=== PATIENT | male | born 1980 | race Caucasian/White ===

== ENCOUNTER 2016-10-19 10:18 | Outpatient (CLI) | payer OTHER ==
[~2016-10-19 10:18] MED LIST: LIB10 PO
[2016-10-19 10:44] LABS: BASOPHILS # (AUTO) 0.2 K/uL (0.0-0.2); BASOPHILS % (AUTO) 1.7 % (0.0-2.0); EOSINOPHILS # (AUTO) 0.2 K/uL (0.0-0.4); EOSINOPHILS % (AUTO) 2.5 % (0.0-4.0); HEMOGLOBIN 15.9 g/dL (14.0-18.0); LYMPHOCYTES # (AUTO) 2.6 K/uL (1.0-5.5); LYMPHOCYTES % (AUTO) 29.3 % (20.5-51.5); MEAN CORPUSCULAR HEMOGLOBIN 32 pg (27-31); MEAN CORPUSCULAR HGB CONC 33 % (32-36); MEAN CORPUSCULAR VOLUME 98 fL (79.0-98.0); MONOCYTES # (AUTO) 0.7 K/uL (0.0-1.0); MONOCYTES % (AUTO) 7.3 % (1.7-9.3); NEUTROPHILS # (AUTO) 5.2 K/uL (1.8-7.7); NEUTROPHILS % (AUTO) 59.2 % (40.0-70.0); PLATELET COUNT (AUTO) 305 K/uL (130-430); RED BLOOD CELL COUNT(AUTO) 4.92 MIL/uL (4.2-6.2); RED CELL DISTRIBUTION WIDTH 13.4 % (9.0-15.0); WHITE BLOOD COUNT (AUTO) 8.9 K/uL (4.8-10.8)
[2016-10-19 10:47] LABS: CALCIUM 9.4 mg/dL (8.4-11.0); CREATININE 0.71 mg/dL (0.55-1.30); POTASSIUM 4.7 mmol/L (3.5-5.1)
[2016-10-19 11:02] LABS: ALBUMIN 4.3 g/dL (3.4-4.8); THYROID STIMULATING HORMONE 1.16 uIu/mL (0.36-3.74); TOTAL BILIRUBIN 0.5 mg/dL (0.0-1.0); TOTAL PROTEIN, SERUM 7.6 g/dL (6.4-8.3)
[2016-10-20 12:50] LABS: HEMOGLOBIN A1C 5.5 % (4.8-5.6)
== END 2016-10-19 21:28 | disposition home or self-care (01) ==
LOC: SLB 10:18
PROVIDERS: ATTEND Internal Medicine
DX: Z00.00 Encounter for general adult medical examination without abnormal findings (principal); R73.9 Hyperglycemia, unspecified; E55.9 Vitamin D deficiency, unspecified; E78.5 Hyperlipidemia, unspecified; R73.01 Impaired fasting glucose
CPT/HCPCS: 36415; 80053; 80061; 82306; 82607; 83036; 84443-TC; 85025

== ENCOUNTER 2017-11-28 09:57 | Outpatient (CLI) | payer OTHER ==
[~2017-11-28 09:57] MED LIST changes: +CARV25TA55 PO; +NICO1PAT11 TD
[2017-11-28 10:21] LABS: BASOPHILS # (AUTO) 0.1 K/uL (0.0-0.2); EOSINOPHILS # (AUTO) 0.4 K/uL (0.0-0.4); EOSINOPHILS % (AUTO) 4.3 % (0.0-4.0); HEMATOCRIT 45.4 % (36-54); HEMOGLOBIN 15.2 g/dL (14.0-18.0); LYMPHOCYTES # (AUTO) 2.2 K/uL (1.0-5.5); LYMPHOCYTES % (AUTO) 24.6 % (20.5-51.5); MEAN CORPUSCULAR HEMOGLOBIN 33 pg (27-31); MEAN CORPUSCULAR HGB CONC 34 % (32-36); MEAN CORPUSCULAR VOLUME 98 fL (79.0-98.0); MONOCYTES # (AUTO) 0.6 K/uL (0.0-1.0); NEUTROPHILS # (AUTO) 5.6 K/uL (1.8-7.7); NEUTROPHILS % (AUTO) 63.1 % (40.0-70.0); PLATELET COUNT (AUTO) 377 K/uL (130-430); RED BLOOD CELL COUNT(AUTO) 4.64 MIL/uL (4.2-6.2); RED CELL DISTRIBUTION WIDTH 13.4 % (9.0-15.0); WHITE BLOOD COUNT (AUTO) 8.9 K/uL (4.8-10.8)
[2017-11-28 10:27] LABS: CALCIUM 9.2 mg/dL (8.4-11.0); CREATININE 0.71 mg/dL (0.55-1.30); POTASSIUM 4.5 mmol/L (3.5-5.1)
[2017-11-28 10:31] LABS: PROTHROMBIN TIME 9.7 SECS (9.5-12.5)
== END 2017-11-28 19:47 | disposition home or self-care (01) ==
LOC: SLB 09:57
PROVIDERS: ATTEND Neurological Surgery
DX: E10.649 Type 1 diabetes mellitus with hypoglycemia without coma (principal); Z79.01 Long term (current) use of anticoagulants
CPT/HCPCS: 36415; 80048; 83036; 85025; 85610-TC; 85730-TC

== ENCOUNTER 2018-02-19 12:23 | Outpatient (CLI) | payer OTHER ==
[2018-02-19 12:57] LABS: BASOPHILS # (AUTO) 0.1 K/uL (0.0-0.2); BASOPHILS % (AUTO) 0.7 % (0.0-2.0); EOSINOPHILS # (AUTO) 0.4 K/uL (0.0-0.4); HEMATOCRIT 45.5 % (36-54); HEMOGLOBIN 15.5 g/dL (14.0-18.0); LYMPHOCYTES # (AUTO) 2.8 K/uL (1.0-5.5); LYMPHOCYTES % (AUTO) 28.7 % (20.5-51.5); MEAN CORPUSCULAR HEMOGLOBIN 32 pg (27-31); MEAN CORPUSCULAR HGB CONC 34 % (32-36); MEAN CORPUSCULAR VOLUME 93 fL (79.0-98.0); MONOCYTES # (AUTO) 0.6 K/uL (0.0-1.0); MONOCYTES % (AUTO) 6.7 % (1.7-9.3); NEUTROPHILS # (AUTO) 5.8 K/uL (1.8-7.7); NEUTROPHILS % (AUTO) 59.9 % (40.0-70.0); PLATELET COUNT (AUTO) 296 K/uL (130-430); RED BLOOD CELL COUNT(AUTO) 4.89 MIL/uL (4.2-6.2); RED CELL DISTRIBUTION WIDTH 12.5 % (9.0-15.0); WHITE BLOOD COUNT (AUTO) 9.7 K/uL (4.8-10.8)
[2018-02-19 13:09] LABS: INR 0.9 (0.80-1.20); PROTHROMBIN TIME 9.5 SECS (9.5-12.5)
[2018-02-19 13:20] LABS: CALCIUM 9.2 mg/dL (8.4-11.0); CREATININE 0.67 mg/dL (0.55-1.30); POTASSIUM 4.3 mmol/L (3.5-5.1); THYROID STIMULATING HORMONE 1.84 uIu/mL (0.34-4.82); TOTAL BILIRUBIN 0.6 mg/dL (0.0-1.0)
[2018-02-20 06:07] LABS: HEMOGLOBIN A1C 5.3 % (4.8-5.6)
== END 2018-02-19 20:01 | disposition home or self-care (01) ==
LOC: SRD 12:23 → SLB 20:01
PROVIDERS: ATTEND Internal Medicine
DX: E87.5 Hyperkalemia (principal); E56.9 Vitamin deficiency, unspecified; G99.0 Autonomic neuropathy in diseases classified elsewhere; I10 Essential (primary) hypertension; M19.90 Unspecified osteoarthritis, unspecified site; F17.200 Nicotine dependence, unspecified, uncomplicated
CPT/HCPCS: 36415; 80053; 80061; 82306; 82607; 83036; 84443-TC; 85025; 85610-TC

== ENCOUNTER 2018-03-21 11:59 | Outpatient (CLI) | payer OTHER, MEDICAID | END 2018-03-21 19:27 | disposition home or self-care (01) | LOC: SRD 11:59 | PROVIDERS: ATTEND Neurological Surgery | DX: M54.5 Low back pain (principal); Z96.698 Presence of other orthopedic joint implants | CPT/HCPCS: 72100-TC; 72114-TC ==

== ENCOUNTER 2018-08-27 09:46 | Outpatient (CLI) | payer OTHER, MEDICAID | END 2018-08-27 21:11 | disposition home or self-care (01) | LOC: SCT 09:46 | PROVIDERS: ATTEND Internal Medicine | DX: M25.571 Pain in right ankle and joints of right foot (principal); M25.572 Pain in left ankle and joints of left foot | CPT/HCPCS: 73700-TC ==

== ENCOUNTER 2018-09-16 11:40 | Outpatient (CLI) | payer OTHER, MEDICAID | END 2018-09-16 20:57 | disposition home or self-care (01) | LOC: SRD 11:40 | PROVIDERS: ATTEND Internal Medicine | DX: M25.572 Pain in left ankle and joints of left foot (principal) ==

== ENCOUNTER 2019-03-23 12:35 | Emergency (ER) | payer OTHER, MEDICAID ==
[~2019-03-23] VITALS: Ht 162.6 cm; Wt 76.2 kg
[2019-03-23 12:35] VITALS: BP_SYST 150
[2019-03-23] MEDS ORDERED: LORazepam 1 MG TABLET PO ONE (16:45)
[2019-03-23 16:55] VITALS: BP_SYST 140
== END 2019-03-23 16:55 | disposition home or self-care (01) ==
LOC: SED 12:35
DX: F10.129 Alcohol abuse with intoxication, unspecified (principal); I10 Essential (primary) hypertension; F17.200 Nicotine dependence, unspecified, uncomplicated; Z71.6 Tobacco abuse counseling; Z79.899 Other long term (current) drug therapy
CPT/HCPCS: 93005; 99283

== ENCOUNTER 2019-04-28 13:54 | Emergency (ER) | payer OTHER, MEDICAID ==
[~2019-04-28] VITALS: Ht 177.8 cm; Wt 86.2 kg
[2019-04-28 14:00] VITALS: BP_SYST 154
--- NOTE | 2019-04-28 14:10 | NUR ---
Patient triaged and placed in waiting room. VSS and patient appears in no acute distress at this time. Accompanied by , awaiting available bed, and MD notified of need for MSE.
--- NOTE | 2019-04-28 14:31 | NUR ---
BROUGHT BACK TO BED #5 AND TRIAGED. REPORT GIVEN TO ELSI
--- NOTE | 2019-04-28 14:35 | NUR ---
DR YARBROUGH AT BEDSIDE FOR EVALUATION
[2019-04-28] MEDS ORDERED: FOLIC ACID 5 MG/ML VIAL IV ONE (15:00)
[2019-04-28] MEDS ORDERED: ONDANSETRON HCL 4 MG/2 ML VIAL IVP ONE (15:00)
[2019-04-28] MEDS ORDERED: NACL 0.9% 1,000 ML IV ONE ×2 (15:00→16:00)
[2019-04-28] MEDS ORDERED: THIAMINE HCL 100 MG in NS 50 ML IV ONE (15:00)
[2019-04-28 15:09] LABS: BASOPHILS % (AUTO) 0.4 % (0.0-2.0); EOSINOPHILS % (AUTO) 0.2 % (0.0-4.0); LYMPHOCYTES # (AUTO) 4.1 K/uL (1.0-5.5); LYMPHOCYTES % (AUTO) 40.8 % (20.5-51.5); MEAN CORPUSCULAR VOLUME 95 fL (79.0-98.0); MONOCYTES # (AUTO) 0.6 K/uL (0.0-1.0); MONOCYTES % (AUTO) 6.3 % (1.7-9.3); NEUTROPHILS # (AUTO) 5.3 K/uL (1.8-7.7); NEUTROPHILS % (AUTO) 52.3 % (40.0-70.0); PLATELET COUNT (AUTO) 193 K/uL (130-430); RED CELL DISTRIBUTION WIDTH 15.6 % (9.0-15.0); WHITE BLOOD COUNT (AUTO) 10.1 K/uL (4.8-10.8)
[2019-04-28 15:25] LABS: HEMOGLOBIN 16.4 g/dL (14.0-18.0); MEAN CORPUSCULAR HEMOGLOBIN 32 pg (27-31); MEAN CORPUSCULAR HGB CONC 34 % (32-36)
[2019-04-28 15:33] LABS: RED BLOOD CELL COUNT(AUTO) 5.16 MIL/uL (4.2-6.2)
[2019-04-28] MEDS ORDERED: THIAMINE HCL 100 MG/ML VIAL ONE (15:36)
[2019-04-28 15:39] LABS: CREATININE 0.84 mg/dL (0.55-1.30); POTASSIUM 4.7 mmol/L (3.5-5.1)
--- NOTE | 2019-04-28 15:40 | NUR ---
IV FLUIDS INFUSING WELL, SAFETY PRECAUTIONS IN PLACE. PT STATES HES BEEN ON A DRINKNING BINGE FOR THE LAST SEVERAL MONTHS , DRINKING VODKA. REPORTS INVREASE IN STRESS. PT DENIES ANY SI/HI, NO FEVERS/CHILLS. DENIES ANY ABDOMINAL PAIN, RESP EVEN AND UNLABORED, ON RA @98%. SKIN W/D/I.
[2019-04-28 15:43] LABS: ALBUMIN 2.8 g/dL (3.4-4.8); TOTAL BILIRUBIN 0.8 mg/dL (0.0-1.0)
--- NOTE | 2019-04-28 16:08 | NUR ---
pt with eyes closed, easily arousable. pt [id number], denies any pain. IV fluids infusing well. vss.
--- NOTE | 2019-04-28 17:07 | NUR ---
NO ACUTE CHNAGES IN CONDITION, PT IN NAD. IV FLUIDS INFUSING WELL.
--- NOTE | 2019-04-28 17:10 | NUR ---
DR YARBROUGH AT BEDSIDE FOR EVALUATION
--- NOTE | 2019-04-28 17:10 | NUR ---
DINNER TRAY GIVEN, PT EATING WELL.
[2019-04-28] MEDS ORDERED: NICOTINE 21 MG/24 HR PATCH.TD24 TD ONE (17:30)
[2019-04-28] MEDS ORDERED: NICOTINE 21 MG/24 HR PATCH.TD24 TD SCH (17:30)
--- NOTE | 2019-04-28 17:55 | NUR ---
Nicotine patch placed as ordered.
[2019-04-28 17:56] VITALS: BP_SYST 138
[2019-04-28] MEDS ORDERED: GABA-529 PO (18:00)
[2019-04-28] MEDS ORDERED: FOLIC ACID 1 MG, MVI 10 ML in NACL 0.9% 1,000 ML IV ONE (18:30)
[2019-04-28] MEDS ORDERED: MAGNESIUM SULFATE 1 GM, THIAMINE HCL 100 MG in NS 100 ML IV ONE (18:30)
--- NOTE | 2019-04-28 19:01 | NUR ---
CALLED [facility]O AND INFORMED THEM PT ELOPED FROM EMERGENCY ROOM BED [address] TO RT AC. DR YARBROUGH AND CN INFORMED. Addendum: 04/28/19 at 1905 by [email or web address] NOTE ENTEREED BY ELSI DACOSTA RN
--- NOTE | 2019-04-28 19:06 | NUR ---
PT GÓMEZ, DR YARBROUGH INFORMED, RAEANN RODRIGUEZ WAS CALLED AND INFORMED THAT PT LEFT WITH IV TO LEFT AC. SPOKE WITH MIKE ALCOCER WHO I GAVE PT'S INFORMATION. ALL QUESTIONS ANSWERED.
[2019-04-28] MEDS ORDERED: TEMAZEPAM 15 MG CAPSULE PO PRN (22:30)
[2019-04-28] MEDS ORDERED: LORazepam 2 MG/ML VIAL IVP PRN (22:30)
[2019-04-28] MEDS ORDERED: ONDANSETRON HCL 4 MG/2 ML VIAL IVP PRN (22:30)
[2019-04-28] MEDS ORDERED: MORPHINE SULFATE 30 MG Immediate Release TABLET PO PRN (22:30)
[2019-04-28] MEDS ORDERED: GABAPENTIN 100 MG CAPSULE PO SCH (22:30)
[2019-04-28] MEDS ORDERED: CARVEDILOL 25 MG TABLET (COREG) PO ONE (22:45)
[2019-04-28] MEDS ORDERED: FAMOTIDINE PF 20 MG/2 ML VIAL IVP SCH (23:00)
[2019-04-28] MEDS ORDERED: CARVEDILOL 25 MG TABLET (COREG) PO SCH (23:00)
[2019-04-29] MEDS ORDERED: CARVEDILOL 25 MG TABLET (COREG) PO SCH (09:00)
[2019-04-29] MEDS ORDERED: THIAMINE HCL 100 MG TABLET PO SCH (09:00)
[2019-04-29] MEDS ORDERED: FOLIC ACID 1 MG TABLET PO SCH (09:00)
[2019-04-29] MEDS ORDERED: NICOTINE 21 MG/24 HR PATCH.TD24 TD SCH (09:00)
[2019-04-29] MEDS ORDERED: GABAPENTIN 100 MG CAPSULE PO SCH (09:00)
[2019-04-29] MEDS ORDERED: FAMOTIDINE PF 20 MG/2 ML VIAL IVP SCH (09:00)
== END 2019-04-28 19:04 | disposition left against medical advice (07) ==
LOC: SED 13:54 → SMU 17:24 → UNDOADMIN 17:24 → SMU 17:46 → UNDODISIN 19:06
DX: F10.129 Alcohol abuse with intoxication, unspecified (principal); M79.672 Pain in left foot; M79.671 Pain in right foot; R73.9 Hyperglycemia, unspecified; R74.0 Nonspecific elevation of levels of transaminase and lactic acid dehydrogenase [LDH]; I10 Essential (primary) hypertension; G40.89 Other seizures; Y90.8 Blood alcohol level of 240 mg/100 ml or more
CPT/HCPCS: 36415; 80053; 83690; 85025; 96365; 96375; 99283; G0482; J2405; J3411; J3475; J3490; J7030

== ENCOUNTER 2019-04-30 10:31 | Inpatient (IN) | payer OTHER, MEDICAID ==
[~2019-04-30] VITALS: Ht 177.8 cm; Wt 86.2 kg
[~2019-04-30 10:31] MED LIST changes: +GABA-529 PO; -LIB10 PO
[2019-04-30] MEDS ORDERED: THIAMINE HCL 100 MG TABLET PO ONE (12:00)
[2019-04-30] MEDS ORDERED: GABAPENTIN 100 MG CAPSULE PO ONE (12:00)
[2019-04-30] MEDS ORDERED: cloNIDine HCL 0.1 MG TABLET PO PRN (12:00)
[2019-04-30] MEDS ORDERED: ONDANSETRON HCL 4 MG/2 ML VIAL IVP PRN (12:00)
[2019-04-30] MEDS ORDERED: NICOTINE 21 MG/24 HR PATCH.TD24 TD ONE (12:00)
[2019-04-30] MEDS ORDERED: chlordiazePOXIDE HCL 25 MG CAPSULE PO ONE (12:00)
[2019-04-30 12:28] LABS: BASOPHILS # (AUTO) 0.1 K/uL (0.0-0.2); BASOPHILS % (AUTO) 0.5 % (0.0-2.0); EOSINOPHILS % (AUTO) 0.3 % (0.0-4.0); HEMATOCRIT 51.4 % (36-54); LYMPHOCYTES # (AUTO) 4.1 K/uL (1.0-5.5); LYMPHOCYTES % (AUTO) 40.2 % (20.5-51.5); MEAN CORPUSCULAR VOLUME 95 fL (79.0-98.0); MONOCYTES # (AUTO) 0.5 K/uL (0.0-1.0); MONOCYTES % (AUTO) 5.2 % (1.7-9.3); NEUTROPHILS # (AUTO) 5.5 K/uL (1.8-7.7); NEUTROPHILS % (AUTO) 53.8 % (40.0-70.0); PLATELET COUNT (AUTO) 196 K/uL (130-430); RED BLOOD CELL COUNT(AUTO) 5.44 MIL/uL (4.2-6.2); WHITE BLOOD COUNT (AUTO) 10.3 K/uL (4.8-10.8)
[2019-04-30 12:33] VITALS: BP_SYST 147
[2019-04-30 12:39] LABS: HEMOGLOBIN 17.3 g/dL (14.0-18.0); MEAN CORPUSCULAR HEMOGLOBIN 32 pg (27-31); MEAN CORPUSCULAR HGB CONC 34 % (32-36)
[2019-04-30 13:09] LABS: ALBUMIN 3.1 g/dL (3.4-4.8); CALCIUM 7.1 mg/dL (8.4-11.0); CREATININE 0.48 mg/dL (0.55-1.30); POTASSIUM 3.6 mmol/L (3.5-5.1); TOTAL BILIRUBIN 1.2 mg/dL (0.0-1.0)
[2019-04-30] MEDS: LORazepam 2 MG/ML VIAL IVP PRN ×3 (13:46→20:47)
[2019-04-30 14:23] VITALS: BP_SYST 157
[2019-04-30 14:37] LABS: BILIRUBIN,URINE NEGATIVE (NEGATIVE); BLOOD, URINE 1+ (NEGATIVE); CLARITY/URINE CLEAR (CLEAR); GLUCOSE,URINE NEGATIVE (NEGATIVE); KETONES,URINE NEGATIVE (NEGATIVE); LEUKOCYTE ESTERASE ,URINE NEGATIVE (NEGATIVE); NITRITE, URINE NEGATIVE (NEGATIVE); PROTEIN URINE 1+ (NEGATIVE); UROBILINOGEN,URINE 0.2 (0.2-1.0)
[2019-04-30 14:38] LABS: COLOR,URINE YELLOW (YELLOW)
[2019-04-30 15:00] LABS: BACTERIA,URINE None Seen /HPF (None Seen); RBC,URINE 0-3 /HPF (0-3); WBC,URINE 0-3 /HPF (0-3)
[2019-04-30] MEDS ORDERED: GABAPENTIN 100 MG CAPSULE PO SCH (15:00)
[2019-04-30 15:01] LABS: HYALINE CASTS, URINE 0-10 /LPF (None Seen); MUCUS,URINE 1+ /LPF (None Seen)
[2019-04-30] MEDS: MAGNESIUM SULFATE 1 GM, THIAMINE HCL 100 MG in NS 100 ML IV SCH (15:38)
[2019-04-30] MEDS: FOLIC ACID 1 MG, MVI 10 ML in NACL 0.9% 1,000 ML IV SCH (15:41)
[2019-04-30 16:00] VITALS: BP_SYST 162
[2019-04-30] MEDS ORDERED: cloNIDine HCL 0.1 MG TABLET PO ONE (16:30)
[2019-04-30] MEDS ORDERED: CARVEDILOL 25 MG TABLET (COREG) PO ONE (16:30)
[2019-04-30 16:45] VITALS: BP_SYST 159
[2019-04-30] MEDS: GABAPENTIN 100 MG CAPSULE PO SCH ×2 (16:49→22:26)
[2019-04-30] MEDS: HYDROcodone/ACETAMIN 10-325 MG TAB PO PRN ×3 (16:51→23:29)
[2019-04-30] MEDS ORDERED: FLU VACC QS2019-20 36MOS UP/PF 60 MCG/0.5 ML SYRINGE I.M. PRN (18:00)
[2019-04-30 18:19] LABS: INR 0.9 (0.80-1.20); PROTHROMBIN TIME 9.3 SECS (9.5-12.5)
[2019-04-30] MEDS: CARVEDILOL 25 MG TABLET (COREG) PO SCH (20:51)
[2019-04-30] MEDS: chlordiazePOXIDE HCL 10 MG CAPSULE PO SCH (20:51)
[2019-04-30] MEDS ORDERED: TEMAZEPAM 15 MG CAPSULE PO PRN (22:00)
[2019-04-30] MEDS ORDERED: FAMOTIDINE 20 MG TABLET PO ONE (22:00)
[2019-05-01 00:43] VITALS: BP_SYST 164
[2019-05-01] MEDS: LORazepam 2 MG/ML VIAL IVP PRN ×4 (01:19→21:12)
[2019-05-01] MEDS: HYDROcodone/ACETAMIN 10-325 MG TAB PO PRN ×6 (05:35→21:41)
[2019-05-01 07:14] LABS: HEMATOCRIT 39.5 % (36-54); MEAN CORPUSCULAR VOLUME 95 fL (79.0-98.0); PLATELET COUNT (AUTO) 96 K/uL (130-430); RED BLOOD CELL COUNT(AUTO) 4.17 MIL/uL (4.2-6.2); WHITE BLOOD COUNT (AUTO) 7.1 K/uL (4.8-10.8)
[2019-05-01 08:50] VITALS: BP_SYST 196
[2019-05-01 08:52] LABS: CALCIUM 7.2 mg/dL (8.4-11.0); CREATININE 0.75 mg/dL (0.55-1.30); POTASSIUM 3.7 mmol/L (3.5-5.1)
[2019-05-01 09:02] LABS: ALBUMIN 2.3 g/dL (3.4-4.8); FREE T4 (FREE THYROXINE) 0.9 ng/dl (0.8-1.5); PHOSPHORUS 1.7 mg/dL (2.7-4.5); TOTAL BILIRUBIN 1.5 mg/dL (0.0-1.0)
[2019-05-01] MEDS: FOLIC ACID 1 MG TABLET PO SCH (09:33)
[2019-05-01] MEDS: FAMOTIDINE 20 MG TABLET PO SCH ×2 (09:33→21:02)
[2019-05-01] MEDS: THIAMINE HCL 100 MG TABLET PO SCH (09:33)
[2019-05-01] MEDS: CARVEDILOL 25 MG TABLET (COREG) PO SCH ×2 (09:34→21:03)
[2019-05-01] MEDS: chlordiazePOXIDE HCL 10 MG CAPSULE PO SCH ×3 (09:34→21:02)
[2019-05-01] MEDS: NICOTINE 21 MG/24 HR PATCH.TD24 TD SCH (09:34)
[2019-05-01] MEDS ORDERED: NA PHOS 30 MM in NS 250 ML IV ONE (09:45)
[2019-05-01] MEDS ORDERED: CHOLECALCIFEROL (VITAMIN D3) 2,000 UNIT TABLET PO ONE (10:00)
[2019-05-01] MEDS ORDERED: MULTIVITS,CA,MINERALS/IRON/FA 1 TABLET PO ONE (10:15)
[2019-05-01 10:48] LABS: HEMOGLOBIN 13.3 g/dL (14.0-18.0); MEAN CORPUSCULAR HEMOGLOBIN 32 pg (27-31)
[2019-05-01 10:49] LABS: MEAN CORPUSCULAR HGB CONC 34 % (32-36)
[2019-05-01 10:58] LABS: BAND % (MANUAL) 2 % (0-6); BASOPHILS % (MANUAL) 0 % (0-2); EOSINOPHILS % (MANUAL) 0 % (0-7); LYMPHOCYTES % (MANUAL) 42 % (20-46); MONOCYTES % (MANUAL) 3 % (0-11)
[2019-05-01] MEDS: GABAPENTIN 100 MG CAPSULE PO SCH ×4 (11:09→20:59)
[2019-05-01] MEDS: FOLIC ACID 1 MG, MVI 10 ML in NACL 0.9% 1,000 ML IV SCH (11:11)
[2019-05-01 12:10] VITALS: BP_SYST 161
[2019-05-01] MEDS: cloNIDine HCL 0.1 MG TABLET PO PRN ×2 (12:26→16:35)
[2019-05-01] MEDS: MAGNESIUM SULFATE 1 GM, THIAMINE HCL 100 MG in NS 100 ML IV SCH (12:27)
[2019-05-01 16:08] VITALS: BP_SYST 169
[2019-05-01 20:00] VITALS: BP_SYST 170
[2019-05-02] VITALS: BP_SYST 159
[2019-05-02] MEDS: LORazepam 2 MG/ML VIAL IVP PRN ×2 (01:10→06:42)
[2019-05-02] MEDS: HYDROcodone/ACETAMIN 10-325 MG TAB PO PRN ×3 (01:18→06:38)
[2019-05-02 04:00] VITALS: BP_SYST 154
[2019-05-02 06:09] LABS: BASOPHILS # (AUTO) 0.1 K/uL (0.0-0.2); BASOPHILS % (AUTO) 0.5 % (0.0-2.0); EOSINOPHILS # (AUTO) 0.1 K/uL (0.0-0.4); EOSINOPHILS % (AUTO) 0.7 % (0.0-4.0); HEMATOCRIT 41.2 % (36-54); HEMOGLOBIN 14.2 g/dL (14.0-18.0); LYMPHOCYTES # (AUTO) 1.9 K/uL (1.0-5.5); LYMPHOCYTES % (AUTO) 18.1 % (20.5-51.5); MEAN CORPUSCULAR HEMOGLOBIN 33 pg (27-31); MEAN CORPUSCULAR HGB CONC 35 % (32-36); MEAN CORPUSCULAR VOLUME 95 fL (79.0-98.0); MONOCYTES # (AUTO) 0.3 K/uL (0.0-1.0); MONOCYTES % (AUTO) 2.9 % (1.7-9.3); NEUTROPHILS # (AUTO) 8.2 K/uL (1.8-7.7); NEUTROPHILS % (AUTO) 77.8 % (40.0-70.0); PLATELET COUNT (AUTO) 80 K/uL (130-430); RED BLOOD CELL COUNT(AUTO) 4.34 MIL/uL (4.2-6.2); RED CELL DISTRIBUTION WIDTH 14.9 % (9.0-15.0); WHITE BLOOD COUNT (AUTO) 10.5 K/uL (4.8-10.8)
[2019-05-02 06:53] LABS: ALBUMIN 2.4 g/dL (3.4-4.8); CALCIUM 7.9 mg/dL (8.4-11.0); CREATININE 0.53 mg/dL (0.55-1.30); PHOSPHORUS 3.6 mg/dL (2.7-4.5); POTASSIUM 3.8 mmol/L (3.5-5.1); TOTAL BILIRUBIN 1.5 mg/dL (0.0-1.0)
[2019-05-02] MEDS ORDERED: MULTIVITS,CA,MINERALS/IRON/FA 1 TABLET PO SCH (09:00)
[2019-05-02] MEDS ORDERED: CHOLECALCIFEROL (VITAMIN D3) 2,000 UNIT TABLET PO SCH (09:00)
[2019-05-02] MEDS: NICOTINE 21 MG/24 HR PATCH.TD24 TD SCH (09:02)
[2019-05-02] MEDS: GABAPENTIN 100 MG CAPSULE PO SCH (09:02)
[2019-05-02] MEDS: FAMOTIDINE 20 MG TABLET PO SCH (09:03)
[2019-05-02] MEDS: FOLIC ACID 1 MG TABLET PO SCH (09:03)
[2019-05-02] MEDS: THIAMINE HCL 100 MG TABLET PO SCH (09:03)
[2019-05-02] MEDS: CARVEDILOL 25 MG TABLET (COREG) PO SCH (09:11)
[2019-05-02 09:59] VITALS: BP_SYST 149
[2019-05-02] MEDS ORDERED: CAT.1 PO (11:22)
[2019-05-02] MEDS ORDERED: MULT-33 PO (11:22)
[2019-05-02] MEDS ORDERED: VITD2000 PO (11:22)
[2019-05-02] MEDS ORDERED: FOLI-43 PO (11:22)
[2019-05-02] MEDS ORDERED: NEU100 PO (11:22)
[2019-05-02] MEDS ORDERED: FAMO20TA8 PO (11:22)
[2019-05-02 11:51] VITALS: BP_SYST 136
== END 2019-05-02 12:10 | disposition home or self-care (01) | DRG 433 ==
LOC: STU 10:31 → SMU 12:22 → STU 12:58 → SMU 05-01 13:08
PROVIDERS: ADMIT Internal Medicine; ATTEND Internal Medicine
DX: K70.10 Alcoholic hepatitis without ascites (principal); F10.239 Alcohol dependence with withdrawal, unspecified; E87.1 Hypo-osmolality and hyponatremia; E44.0 Moderate protein-calorie malnutrition; E83.39 Other disorders of phosphorus metabolism; I10 Essential (primary) hypertension; M19.172 Post-traumatic osteoarthritis, left ankle and foot; M19.171 Post-traumatic osteoarthritis, right ankle and foot; E83.51 Hypocalcemia; F32.9 Major depressive disorder, single episode, unspecified; G89.4 Chronic pain syndrome; Z79.899 Other long term (current) drug therapy; Z68.27 Body mass index [BMI] 27.0-27.9, adult
CPT/HCPCS: 36415; 76700-TC; 80053; 80061; 81000-TC; 82105; 83690-TC; 83735-TC; 84100-TC; 84439; 85007; 85025; 85027; 85610-TC; 93306; G0378; J2060; J3411; J3475; J3490; J7030; J7050

== ENCOUNTER → 2019-09-07 | Outpatient (CLI) | payer OTHER, MEDICAID ==
[~2019-09-07] MED LIST changes: +CAT.1 PO; +FAMO20TA8 PO; +FOLI-43 PO; +MULT-33 PO; +NEU100 PO; +VITD2000 PO
[2019-09-07 12:45] LABS: BASOPHILS # (AUTO) 0.1 K/uL (0.0-0.2); BASOPHILS % (AUTO) 0.9 % (0.0-2.0); BILIRUBIN,URINE NEGATIVE (NEGATIVE); BLOOD, URINE NEGATIVE (NEGATIVE); CLARITY/URINE CLEAR (CLEAR); COLOR,URINE YELLOW (YELLOW); EOSINOPHILS # (AUTO) 0.2 K/uL (0.0-0.4); EOSINOPHILS % (AUTO) 2.4 % (0.0-4.0); GLUCOSE,URINE NEGATIVE (NEGATIVE); HEMATOCRIT 45.7 % (36-54); HEMOGLOBIN 15.4 g/dL (14.0-18.0); KETONES,URINE NEGATIVE (NEGATIVE); LEUKOCYTE ESTERASE ,URINE NEGATIVE (NEGATIVE); LYMPHOCYTES # (AUTO) 3.2 K/uL (1.0-5.5); LYMPHOCYTES % (AUTO) 30.6 % (20.5-51.5); MEAN CORPUSCULAR HEMOGLOBIN 32 pg (27-31); MEAN CORPUSCULAR HGB CONC 34 % (32-36); MEAN CORPUSCULAR VOLUME 96 fL (79.0-98.0); MONOCYTES # (AUTO) 0.9 K/uL (0.0-1.0); MONOCYTES % (AUTO) 8.8 % (1.7-9.3); NEUTROPHILS % (AUTO) 57.3 % (40.0-70.0); NITRITE, URINE NEGATIVE (NEGATIVE); PH,URINE 6.5 (5.0-8.0); PLATELET COUNT (AUTO) 226 K/uL (130-430); PROTEIN URINE NEGATIVE (NEGATIVE); RED BLOOD CELL COUNT(AUTO) 4.78 MIL/uL (4.2-6.2); RED CELL DISTRIBUTION WIDTH 14.2 % (9.0-15.0); UROBILINOGEN,URINE 0.2 (0.2-1.0); WHITE BLOOD COUNT (AUTO) 10.4 K/uL (4.8-10.8)
[2019-09-07 13:11] LABS: ALBUMIN 3.7 g/dL (3.4-4.8); CALCIUM 8.8 mg/dL (8.4-11.0); CREATININE 0.71 mg/dL (0.55-1.30); POTASSIUM 4.5 mmol/L (3.5-5.1); THYROID STIMULATING HORMONE 3.03 uIu/mL (0.36-3.74); TOTAL BILIRUBIN 0.3 mg/dL (0.0-1.0)
== END | disposition home or self-care (01) ==
LOC: SLB 12:10
PROVIDERS: ATTEND Internal Medicine
DX: I10 Essential (primary) hypertension (principal); G99.0 Autonomic neuropathy in diseases classified elsewhere; E55.9 Vitamin D deficiency, unspecified; E56.9 Vitamin deficiency, unspecified; R73.9 Hyperglycemia, unspecified; F10.21 Alcohol dependence, in remission
CPT/HCPCS: 36415; 80053; 80061; 81003; 82306; 82607; 83036; 84443-TC; 85025